=== PATIENT | female | born 1985 | race Caucasian/White ===

== ENCOUNTER 2018-10-28 17:56 | Inpatient (IN) | payer OTHER ==
[~2018-10-28] VITALS: Ht 172.7 cm; Wt 86.2 kg
[2018-10-28 20:50] VITALS: Ht 172.7 cm; Wt 86.2 kg
[2018-10-28 22:00] VITALS: BP 144/87; RESP 18
[2018-10-28] MEDS ORDERED: BUSP10TA2 PO (22:19)
[2018-10-28] MEDS ORDERED: BUPR-165 PO (22:19)
[2018-10-28] MEDS ORDERED: NACL 0.9% 3 ML SYG IV SCH (22:30)
[2018-10-28] MEDS ORDERED: HYDROCODONE/APAP (5/325) TAB PO PRN ×2 (22:30)
[2018-10-29] MEDS: DEXTROSE 5%-0.45% NACL 1,000 ML IV SCH ×4 (00:13→21:23)
[2018-10-29] MEDS: ACETAMINOPHEN 325 MG TAB PO PRN ×2 (00:44→20:14)
[2018-10-29 02:00] VITALS: BP 135/89; RESP 19
[2018-10-29] MEDS: KETOROLAC 30 MG INJ IV PRN ×4 (03:51→22:13)
--- NOTE | 2018-10-29 07:12 | HP ---
Date/Time of Note Date/Time of Note DATE: 10/29/18 TIME: 07:09 Assessment/Plan VTE Prophylaxis Pharmacological prophylaxis: heparin Lines/Catheters IV Catheter Type (from Nrsg): Peripheral IV Assessment/Plan Assessment/Plan 1. Nausea/vomiting and diarrhea: Most likely secondary to gastroenteritis -Keep n.p.o. with IV fluid -Empiric IV antibiotic -Pain management 2. History of IV drug use: Patient in a program -Will manage pain was Toradol, which is also her choice of pain med Result Diagram: 10/29/18 0456 10/29/18 0456 Results 24hrs Laboratory Tests Test 10/29/18 04:56 White Blood Count 10.7 Red Blood Count 4.94 Hemoglobin 14.2 Hematocrit 42.8 Mean Corpuscular Volume 86.6 Mean Corpuscular Hemoglobin 28.7 L Mean Corpuscular Hemoglobin Concent 33.2 Red Cell Distribution Width 15.0 H Platelet Count 321 Mean Platelet Volume 9.9 Immature Granulocytes % 0.700 H Neutrophils % 66.0 Lymphocytes % 22.7 Monocytes % 8.6 Eosinophils % 1.6 Basophils % 0.4 Nucleated Red Blood Cells % 0.0 Immature Granulocytes # 0.070 H Neutrophils # 7.0 Lymphocytes # 2.4 Monocytes # 0.9 Eosinophils # 0.2 Basophils # 0.0 Nucleated Red Blood Cells # 0.0 Sodium Level 139 Potassium Level 3.7 Chloride Level 105 Carbon Dioxide Level 24 Anion Gap 10 Blood Urea Nitrogen 5 L Creatinine 0.57 Est Glomerular Filtrat Rate mL/min > 60 Glucose Level 106 Calcium Level 9.4 Phosphorus Level 3.4 Magnesium Level 2.0 Total Bilirubin 0.5 Direct Bilirubin 0.00 Indirect Bilirubin 0.5 Aspartate Amino Transf (AST/SGOT) 22 Alanine Aminotransferase (ALT/SGPT) 16 Alkaline Phosphatase 47 Total Protein 7.2 Albumin 4.3 Globulin 2.90 Albumin/Globulin Ratio 1.48 HPI/ROS Admit Date/Time Admit Date/Time October 28, 2018 at 20:38 Hx of Present Illness Patient is a 33-year-old female with a history of IV drug use who initially presented to [facility] complaining of nausea/vomiting or diarrhea. Symptom has been going on for about 2 days. Emesis described as reddish and the diarrhea watery and brown. She did eat reddish spice and she is not sure if emesis was in fact blood. Last vomiting and diarrhea was at 2pm. She had a CT abdomen/pelvis at the outside hospital which was negative for acute findings. She was discharged home earlier, but came back to the same hospital because of persistent symptoms. Patient then transferred to [facility] for insurance reason PMH/Family/Social Past Medical History Medications Current Medications Dextrose/Sodium Chloride 1,000 ml @ 100 mls/hr Q10H IV Last administered on 10/29/18at 00:13; Admin Dose 100 MLS/HR; Start 10/28/18 at 22:18; Stop 10/31/18 at 22:17 IV Flush (NS 3 ml) 3 ml PER PROTOCOL IV ; Start 10/28/18 at 22:30 Ondansetron HCl (Zofran Inj) 4 mg Q6H PRN IV NAUSEA/VOMITING; Start 10/28/18 at 22:30 Acetaminophen (Tylenol Tab) 650 mg Q6H PRN PO .PAIN 1-3 OR TEMP Last administered on 10/29/18at 00:44; Admin Dose 650 MG; Start 10/28/18 at 22:30 Ketorolac Tromethamine (Toradol) 30 mg Q6H PRN IV PAIN LEVEL 6-10 Last administered on 10/29/18at 03:51; Admin Dose 30 MG; Start 10/29/18 at 01:30; Stop 11/01/18 at 01:29 Coded Allergies: No Known Allergies (Verified Allergy, Unknown, 10/28/18) Exam/Review of Systems Vital Signs Vitals Vital Signs Date Temp Pulse Resp B/P (MAP) Pulse Ox O2 O2 Flow FiO2 Time Delivery Rate 10/29/18 98.6 19 135/89 96 02:00 (104) Intake and Output 10/28/18 10/28/18 10/29/18 1515:00 23:00 07:00 IntakeIntake Total 790 ml BalanceBalance 790 ml Exam Exam Past Surgical Hx: other (HPI) Family History Significant Family History: no pertinent family hx Social History Alcohol Use: none Smoking Status: Never smoker Drug Use: none Exam Constitutional: alert, oriented, well developed Head: normocephalic, atraumatic Eyes: EOMI, PERRL Respiratory: clear to auscultation, normal air movement Cardiovascular: regular rate and rhythm, nl pulses Gastrointestinal: soft, other (Right lower quadrant tenderness elicited on palpation. Patient also with right flank pain) Extremities: normal pulses ARMEN ROLDAN MD October 29, 2018 07:12
[2018-10-29 07:48] VITALS: BP 126/76; PULSE 60; RESP 20
[2018-10-29] MEDS: ONDANSETRON 4 MG INJ IV PRN ×2 (09:32→17:17)
[2018-10-29] MEDS: NICOTINE (14 MG/24 HR) PATCH TRANSDERM SCH (11:51)
[2018-10-29 13:34] VITALS: BP 128/98; PULSE 72; RESP 20
--- NOTE | 2018-10-29 15:40 | PN ---
Date/Time of Note Date/Time of Note DATE: 10/29/18 TIME: 15:35 Assessment/Plan VTE Prophylaxis Risk score (from Ns)>0 risk: 1 SCD applied (from Ns): Yes Pharmacological prophylaxis: other Pharm contraindication: low risk/ambulating Lines/Catheters [facility]from [facility] Peripheral IV Urinary Cath still in place: No Assessment/Plan Assessment/Plan 1. Acute gastroenteritis, improving, IVF, clear liquid 2. H/o IVDA Result Diagram: 10/29/18 0456 10/29/18 0456 Results 24hrs Laboratory Tests Test 10/29/18 04:56 White Blood Count 10.7 Red Blood Count 4.94 Hemoglobin 14.2 Hematocrit 42.8 Mean Corpuscular Volume 86.6 Mean Corpuscular Hemoglobin 28.7 L Mean Corpuscular Hemoglobin Concent 33.2 Red Cell Distribution Width 15.0 H Platelet Count 321 Mean Platelet Volume 9.9 Immature Granulocytes % 0.700 H Neutrophils % 66.0 Lymphocytes % 22.7 Monocytes % 8.6 Eosinophils % 1.6 Basophils % 0.4 Nucleated Red Blood Cells % 0.0 Immature Granulocytes # 0.070 H Neutrophils # 7.0 Lymphocytes # 2.4 Monocytes # 0.9 Eosinophils # 0.2 Basophils # 0.0 Nucleated Red Blood Cells # 0.0 Sodium Level 139 Potassium Level 3.7 Chloride Level 105 Carbon Dioxide Level 24 Anion Gap 10 Blood Urea Nitrogen 5 L Creatinine 0.57 Est Glomerular Filtrat Rate mL/min > 60 Glucose Level 106 Calcium Level 9.4 Phosphorus Level 3.4 Magnesium Level 2.0 Total Bilirubin 0.5 Direct Bilirubin 0.00 Indirect Bilirubin 0.5 Aspartate Amino Transf (AST/SGOT) 22 Alanine Aminotransferase (ALT/SGPT) 16 Alkaline Phosphatase 47 Total Protein 7.2 Albumin 4.3 Globulin 2.90 Albumin/Globulin Ratio 1.48 Subjective 24 Hr Interval Summary Free Text/Dictation still but less abdominal pain, nausea and vomiting, less diarrhea Exam/Review of Systems Exam Vitals Vital Signs Date Temp Pulse Resp B/P (MAP) Pulse Ox O2 O2 Flow FiO2 Time Delivery Rate 10/29/18 97.7 72 20 128/98 98 13:34 (108) Intake and Output 10/28/18 10/28/18 10/29/18 1515:00 23:00 07:00 IntakeIntake Total 790 ml BalanceBalance 790 ml Constitutional: alert, oriented, well developed Psych: no complaints, nl mood/affect Head: normocephalic, atraumatic Eyes: nl conjunctiva, EOMI, nl lids ENMT: nl external ears & nose, nl lips & teeth, nl nasal mucosa & septum Neck: supple, non-tender Respiratory: clear to auscultation, normal air movement; No congested cough, No crackles/rales, No diminished breath sounds, No intercostal retraction, No labored breathing, No respirations, No tactile fremitus, No wheezing, No other Cardiovascular: regular rate and rhythm, nl pulses; No bruits, No diastolic murmur, No edema, No gallop, No irregular rhythm, No jugular venous distention (JVD), No murmurs/extra sounds, No rub, No systolic murmur, No S3, No S4, No other Gastrointestinal: soft, nl liver, spleen, other (diffuse tenderness) Musculoskeletal: nl extremities to inspection Extremities: normal pulses Neurological: CIRCUS AGENT II-XII intact, nl mental status, nl speech, nl strength Results Results 24hrs Laboratory Tests Test 10/29/18 04:56 White Blood Count 10.7 Red Blood Count 4.94 Hemoglobin 14.2 Hematocrit 42.8 Mean Corpuscular Volume 86.6 Mean Corpuscular Hemoglobin 28.7 L Mean Corpuscular Hemoglobin Concent 33.2 Red Cell Distribution Width 15.0 H Platelet Count 321 Mean Platelet Volume 9.9 Immature Granulocytes % 0.700 H Neutrophils % 66.0 Lymphocytes % 22.7 Monocytes % 8.6 Eosinophils % 1.6 Basophils % 0.4 Nucleated Red Blood Cells % 0.0 Immature Granulocytes # 0.070 H Neutrophils # 7.0 Lymphocytes # 2.4 Monocytes # 0.9 Eosinophils # 0.2 Basophils # 0.0 Nucleated Red Blood Cells # 0.0 Sodium Level 139 Potassium Level 3.7 Chloride Level 105 Carbon Dioxide Level 24 Anion Gap 10 Blood Urea Nitrogen 5 L Creatinine 0.57 Est Glomerular Filtrat Rate mL/min > 60 Glucose Level 106 Calcium Level 9.4 Phosphorus Level 3.4 Magnesium Level 2.0 Total Bilirubin 0.5 Direct Bilirubin 0.00 Indirect Bilirubin 0.5 Aspartate Amino Transf (AST/SGOT) 22 Alanine Aminotransferase (ALT/SGPT) 16 Alkaline Phosphatase 47 Total Protein 7.2 Albumin 4.3 Globulin 2.90 Albumin/Globulin Ratio 1.48 Medications Medication Current Medications Dextrose/Sodium Chloride 1,000 ml @ 100 mls/hr Q10H IV Last administered on 10/29/18 11:53; Admin Dose 100 MLS/HR; Start 10/28/18 at 22:18; Stop 10/31/18 at 22:17 IV Flush (NS 3 ml) 3 ml PER PROTOCOL IV ; Start 10/28/18 at 22:30 Ondansetron HCl (Zofran Inj) 4 mg Q6H PRN IV NAUSEA/VOMITING Last administered on 10/29/18 09:32; Admin Dose 4 MG; Start 10/28/18 at 22:30 Acetaminophen (Tylenol Tab) 650 mg Q6H PRN PO .PAIN 1-3 OR TEMP Last administered on 10/29/18 00:44; Admin Dose 650 MG; Start 10/28/18 at 22:30 Ketorolac Tromethamine (Toradol) 30 mg Q6H PRN IV PAIN LEVEL 6-10 Last administered on 10/29/18 09:32; Admin Dose 30 MG; Start 10/29/18 at 01:30; Stop 11/01/18 at 01:29 Nicotine (Nicoderm 14 Mg/ 24hr) 1 patch DAILY TRANSDERM Last administered on 10/29/18 11:51; Admin Dose 1 PATCH; Start 10/29/18 at 11:00 PAULA THAPA MD October 29, 2018 15:40
[2018-10-29] MEDS ORDERED: PROCHLORPERAZINE 5 MG TAB PO PRN (19:30)
[2018-10-29] MEDS ORDERED: CEFTRIAXONE 1 GM INJ IVPB ONE (19:30)
[2018-10-29 20:12] VITALS: BP 150/98; PULSE 70; RESP 18
[2018-10-29] MEDS ORDERED: CEFTRIAXONE 1 GM/NS 50 ML IVPB SCH (20:30)
[2018-10-29] MEDS ORDERED: METOCLOPRAMIDE 10 MG INJ IV ONE (20:30)
[2018-10-29] MEDS: metroNIDAZOLE 500 MG/NS (PMX) 100 ML IVPB SCH (21:23)
[2018-10-30 01:18] VITALS: BP 116/72; PULSE 76; RESP 18
[2018-10-30] MEDS: KETOROLAC 30 MG INJ IV PRN ×4 (04:13→22:19)
[2018-10-30] MEDS: ONDANSETRON 4 MG INJ IV PRN ×4 (04:13→21:06)
[2018-10-30] MEDS: DEXTROSE 5%-0.45% NACL 1,000 ML IV SCH ×4 (04:18→22:24)
[2018-10-30] MEDS: metroNIDAZOLE 500 MG/NS (PMX) 100 ML IVPB SCH ×3 (05:56→22:18)
[2018-10-30 07:49] VITALS: BP 124/76; PULSE 67; RESP 17
[2018-10-30] MEDS: NICOTINE (14 MG/24 HR) PATCH TRANSDERM SCH (09:20)
[2018-10-30 16:24] VITALS: BP 117/79; PULSE 83; RESP 16
--- NOTE | 2018-10-30 17:16 | PN ---
Date/Time of Note Date/Time of Note DATE: 10/30/18 TIME: 17:14 Assessment/Plan VTE [place] [facility] [place]: 1 [place] [facility] [place] Yes Pharmacological prophylaxis: other Pharm contraindication: other Lines/Catheters IV [facility] Type (from [facility] Saline Lock Urinary Cath still in place: No Assessment/Plan Assessment/Plan 1. Acute gastroenteritis, improving, IVF, advance diet 2. H/o IVDA Result Diagram: 10/30/1844210/30/18442 Results 24hrs Laboratory Tests Test 10/29/18 19:00 10/30/18 04:43 Urine Color YELLOW Urine Clarity CLOUDY A Urine pH 8.0 Urine Specific [place] 1.013 Urine Ketones NEGATIVE Urine Nitrite NEGATIVE Urine Bilirubin NEGATIVE Urine Urobilinogen NEGATIVE Urine Leukocyte Esterase NEGATIVE Urine Microscopic RBC 2 Urine Microscopic WBC 2 Urine Squamous Epithelial Cells MANY A Urine Bacteria FEW A Urine Mucus FEW A Urine Hemoglobin NEGATIVE Urine Glucose NEGATIVE Urine Total Protein NEGATIVE Urine Test NEGATIVE White Blood Count 9.3 Red Blood Count 4.99 Hemoglobin 14.4 Hematocrit 43.7 Mean Corpuscular Volume 87.6 Mean Corpuscular Hemoglobin 28.9 L Mean Corpuscular Hemoglobin Concent 33.0 Red Cell Distribution Width 14.8 H Platelet Count 283 Mean Platelet Volume 9.8 Immature Granulocytes % 0.500 H Neutrophils % 66.7 Lymphocytes % 21.8 Monocytes % 8.4 Eosinophils % 2.0 Basophils % 0.6 Nucleated Red Blood Cells % 0.0 Immature Granulocytes # 0.050 H Neutrophils # 6.2 Lymphocytes # 2.0 Monocytes # 0.8 Eosinophils # 0.2 Basophils # 0.1 Nucleated Red Blood Cells # 0.0 Sodium Level 138 Potassium Level 3.5 Chloride Level 105 Carbon Dioxide Level 24 Anion Gap 9 Blood Urea Nitrogen 7 Creatinine 0.69 Est Glomerular Filtrat Rate mL/min > 60 Glucose Level 139 Calcium Level 9.0 Magnesium Level 2.0 Subjective 24 Hr Interval Summary Free Text/Dictation still nausea but no vomiting, no diarrhea today Exam/Review of Systems Exam Vitals Vital Signs Date Temp Pulse Resp B/P (MAP) Pulse Ox O2 O2 Flow FiO2 Time Delivery Rate 10/30/18 98.2 83 16 117/79 96 Room Air 16:24 (92) Intake and Output 10/29/18 10/29/18 10/30/18 1515:00 23:00 07:00 IntakeIntake Total 1650 ml 1390 ml 800 ml BalanceBalance 1650 ml 1390 ml 800 ml Constitutional: alert, oriented, well developed Psych: no complaints, nl mood/affect Head: normocephalic, atraumatic Eyes: nl conjunctiva, EOMI, nl lids, PERRL ENMT: nl external ears & nose, nl lips & teeth, nl nasal mucosa & septum Neck: supple, non-tender Respiratory: clear to auscultation, normal air movement; No congested cough, No crackles/rales, No diminished breath sounds, No intercostal retraction, No labored breathing, No respirations, No tactile fremitus, No wheezing, No other Cardiovascular: regular rate and rhythm, nl pulses; No bruits, No diastolic murmur, No edema, No gallop, No irregular rhythm, No jugular venous distention (JVD), No murmurs/extra sounds, No rub, No systolic murmur, No S3, No S4, No other Gastrointestinal: soft, nl liver, spleen, tender (diffuse mild tenderness); No ascites, No bowel sounds, No distended, No firm, No hepatomegaly, No mass, No rebound or guarding, No splenomegaly, No surgical scars, No other Musculoskeletal: nl extremities to inspection Extremities: normal pulses; No calf tenderness, No cyanosis, No clubbing, No edema, No pitting pedal edema, No palpable cord, No tenderness, No other Neurological: WORK STATION SUPPORT SPECIALIST II-XII intact, nl mental status, nl speech Results Results 24hrs Laboratory Tests Test 10/29/18 19:00 10/30/18 04:43 Urine Color YELLOW Urine Clarity CLOUDY A Urine pH 8.0 Urine Specific [place] 1.013 Urine Ketones NEGATIVE Urine Nitrite NEGATIVE Urine Bilirubin NEGATIVE Urine Urobilinogen NEGATIVE Urine Leukocyte Esterase NEGATIVE Urine Microscopic RBC 2 Urine Microscopic WBC 2 Urine Squamous Epithelial Cells MANY A Urine Bacteria FEW A Urine Mucus FEW A Urine Hemoglobin NEGATIVE Urine Glucose NEGATIVE Urine Total Protein NEGATIVE Urine Test NEGATIVE White Blood Count 9.3 Red Blood Count 4.99 Hemoglobin 14.4 Hematocrit 43.7 Mean Corpuscular Volume 87.6 Mean Corpuscular Hemoglobin 28.9 L Mean Corpuscular Hemoglobin Concent 33.0 Red Cell Distribution Width 14.8 H Platelet Count 283 Mean Platelet Volume 9.8 Immature Granulocytes % 0.500 H Neutrophils % 66.7 Lymphocytes % 21.8 Monocytes % 8.4 Eosinophils % 2.0 Basophils % 0.6 Nucleated Red Blood Cells % 0.0 Immature Granulocytes # 0.050 H Neutrophils # 6.2 Lymphocytes # 2.0 Monocytes # 0.8 Eosinophils # 0.2 Basophils # 0.1 Nucleated Red Blood Cells # 0.0 Sodium Level 138 Potassium Level 3.5 Chloride Level 105 Carbon Dioxide Level 24 Anion Gap 9 Blood Urea Nitrogen 7 Creatinine 0.69 Est Glomerular Filtrat Rate mL/min > 60 Glucose Level 139 Calcium Level 9.0 Magnesium Level 2.0 Medications Medication Current Medications Dextrose/Sodium Chloride 1,000 ml @ 100 mls/hr Q10H IV Last administered on 10/30/18 10:07; Admin Dose 100 MLS/HR; Start 10/28/18 at 22:18; Stop 10/31/18 at 22:17 IV Flush (NS 3 ml) 3 ml PER PROTOCOL IV ; Start 10/28/18 at 22:30 Acetaminophen (Tylenol Tab) 650 mg Q6H PRN PO .PAIN 1-3 OR TEMP Last administered on 10/29/18 20:14; Admin Dose 650 MG; Start 10/28/18 at 22:30 Ketorolac Tromethamine (Toradol) 30 mg Q6H PRN IV PAIN LEVEL 6-10 Last administered on 10/30/18 16:33; Admin Dose 30 MG; Start 10/29/18 at 01:30; Stop 11/01/18 at 01:29 Nicotine (Nicoderm 14 Mg/ 24hr) 1 patch DAILY TRANSDERM Last administered on 10/30/18 09:20; Admin Dose 1 PATCH; Start 10/29/18 at 11:00 Metronidazole 100 ml @ 100 mls/hr Q8 IVPB Last administered on 10/30/18 14:32; Admin Dose 100 MLS/HR; Start 10/29/18 at 21:00 Prochlorperazine (Compazine) 5 mg Q6H PRN PO NAUSEA AND/OR VOMITING; Start 10/29/18 at 19:30 Ondansetron HCl (Zofran Inj) 4 mg Q4H PRN IV NAUSEA/VOMITING Last administered on 10/30/18 16:33; Admin Dose 4 MG; Start 10/29/18 at 22:30 PAULA THAPA MD October 30, 2018 17:16
[2018-10-30] MEDS: ACETAMINOPHEN 325 MG TAB PO PRN (19:50)
[2018-10-30 20:00] VITALS: BP 120/81; PULSE 91; RESP 17
[2018-10-31] MEDS: DEXTROSE 5%-0.45% NACL 1,000 ML IV SCH ×3 (00:18→20:18)
[2018-10-31 02:19] VITALS: BP 120/76; PULSE 79; RESP 16
[2018-10-31] MEDS: KETOROLAC 30 MG INJ IV PRN ×4 (04:13→23:23)
[2018-10-31] MEDS: ONDANSETRON 4 MG INJ IV PRN ×3 (04:13→21:15)
[2018-10-31] MEDS: metroNIDAZOLE 500 MG/NS (PMX) 100 ML IVPB SCH ×3 (05:24→21:16)
[2018-10-31 07:45] VITALS: BP 113/72; PULSE 70; RESP 18
[2018-10-31] MEDS: NICOTINE (14 MG/24 HR) PATCH TRANSDERM SCH (08:58)
[2018-10-31] MEDS: ACETAMINOPHEN 325 MG TAB PO PRN ×2 (15:52→21:54)
--- NOTE | 2018-10-31 16:14 | PN ---
Date/Time of Note Date/Time of Note DATE: 10/31/18 TIME: 16:12 Assessment/Plan VTE Prophylaxis Risk score (from Ns)>0 risk: 0 SCD applied (from Ns): Yes Pharmacological prophylaxis: other Pharm contraindication: low risk/ambulating Lines/Catheters IV Catheter Type (from Nrsg): Peripheral IV Urinary Cath still in place: No Assessment/Plan Assessment/Plan 1. Acute gastroenteritis, likely bacterial, on flagyl, add levaquin 2. H/o IVDA Result Diagram: 10/31/18 0455 10/31/18 0455 Results 24hrs Laboratory Tests Test 10/31/18 04:55 White Blood Count 7.2 # Red Blood Count 4.64 Hemoglobin 13.6 Hematocrit 40.5 Mean Corpuscular Volume 87.3 Mean Corpuscular Hemoglobin 29.3 Mean Corpuscular Hemoglobin Concent 33.6 Red Cell Distribution Width 14.6 H Platelet Count 248 Mean Platelet Volume 9.8 Immature Granulocytes % 0.600 H Neutrophils % 54.1 Lymphocytes % 30.6 Monocytes % 10.4 Eosinophils % 3.6 Basophils % 0.7 Nucleated Red Blood Cells % 0.0 Immature Granulocytes # 0.040 H Neutrophils # 3.9 Lymphocytes # 2.2 Monocytes # 0.8 Eosinophils # 0.3 Basophils # 0.1 Nucleated Red Blood Cells # 0.0 Sodium Level 140 Potassium Level 3.7 Chloride Level 107 Carbon Dioxide Level 26 Anion Gap 7 Blood Urea Nitrogen 8 Creatinine 0.66 Est Glomerular Filtrat Rate mL/min > 60 Glucose Level 96 # Calcium Level 8.8 Magnesium Level 1.9 Subjective 24 Hr Interval Summary Free Text/Dictation abdominal pain restarted with nausea Exam/Review of Systems Exam Vitals Vital Signs Date Temp Pulse Resp B/P (MAP) Pulse Ox O2 O2 Flow FiO2 Time Delivery Rate 10/31/18 97.8 70 18 113/72 97 07:45 (86) 10/30/18 Room Air 16:24 Intake and Output 10/30/18 10/30/18 10/31/18 1515:00 23:00 07:00 IntakeIntake Total 1040 ml 2300 ml 730 ml BalanceBalance 1040 ml 2300 ml 730 ml Constitutional: alert, oriented, well developed Psych: no complaints, nl mood/affect Head: normocephalic, atraumatic Eyes: nl conjunctiva, EOMI, nl lids ENMT: nl external ears & nose, nl lips & teeth, nl nasal mucosa & septum Neck: supple, non-tender Respiratory: clear to auscultation, normal air movement; No congested cough, No crackles/rales, No diminished breath sounds, No intercostal retraction, No labored breathing, No respirations, No tactile fremitus, No wheezing, No other Cardiovascular: regular rate and rhythm, nl pulses; No bruits, No diastolic murmur, No edema, No gallop, No irregular rhythm, No jugular venous distention (JVD), No murmurs/extra sounds, No rub, No systolic murmur, No S3, No S4, No other Gastrointestinal: soft, tender (diffuse ) Musculoskeletal: nl extremities to inspection Extremities: normal pulses; No calf tenderness, No cyanosis, No clubbing, No edema, No pitting pedal edema, No palpable cord, No tenderness, No other Neurological: WARRANTY CLERK II-XII intact, nl mental status, nl speech, nl strength Results Results 24hrs Laboratory Tests Test 10/31/18 04:55 White Blood Count 7.2 # Red Blood Count 4.64 Hemoglobin 13.6 Hematocrit 40.5 Mean Corpuscular Volume 87.3 Mean Corpuscular Hemoglobin 29.3 Mean Corpuscular Hemoglobin Concent 33.6 Red Cell Distribution Width 14.6 H Platelet Count 248 Mean Platelet Volume 9.8 Immature Granulocytes % 0.600 H Neutrophils % 54.1 Lymphocytes % 30.6 Monocytes % 10.4 Eosinophils % 3.6 Basophils % 0.7 Nucleated Red Blood Cells % 0.0 Immature Granulocytes # 0.040 H Neutrophils # 3.9 Lymphocytes # 2.2 Monocytes # 0.8 Eosinophils # 0.3 Basophils # 0.1 Nucleated Red Blood Cells # 0.0 Sodium Level 140 Potassium Level 3.7 Chloride Level 107 Carbon Dioxide Level 26 Anion Gap 7 Blood Urea Nitrogen 8 Creatinine 0.66 Est Glomerular Filtrat Rate mL/min > 60 Glucose Level 96 # Calcium Level 8.8 Magnesium Level 1.9 Medications Medication Current Medications Dextrose/Sodium Chloride 1,000 ml @ 100 mls/hr Q10H IV Last administered on 10/31/18at 11:59; Admin Dose 100 MLS/HR; Start 10/28/18 at 22:18; Stop 10/31/18 at 22:17 IV Flush (NS 3 ml) 3 ml PER PROTOCOL IV ; Start 10/28/18 at 22:30 Acetaminophen (Tylenol Tab) 650 mg Q6H PRN PO .PAIN 1-3 OR TEMP Last administered on 10/31/18 15:52; Admin Dose 650 MG; Start 10/28/18 at 22:30 Ketorolac Tromethamine (Toradol) 30 mg Q6H PRN IV PAIN LEVEL 6-10 Last administered on 10/31/18 10:43; Admin Dose 30 MG; Start 10/29/18 at 01:30; Stop 11/01/18 at 01:29 Nicotine (Nicoderm 14 Mg/ 24hr) 1 patch DAILY TRANSDERM Last administered on 10/31/18 08:58; Admin Dose 1 PATCH; Start 10/29/18 at 11:00 Metronidazole 100 ml @ 100 mls/hr Q8 IVPB Last administered on 10/31/18 14:40; Admin Dose 100 MLS/HR; Start 10/29/18 at 21:00 Prochlorperazine (Compazine) 5 mg Q6H PRN PO NAUSEA AND/OR VOMITING; Start 10/29/18 at 19:30 Ondansetron HCl (Zofran Inj) 4 mg Q4H PRN IV NAUSEA/VOMITING Last administered on 10/31/18 04:13; Admin Dose 4 MG; Start 10/29/18 at 22:30 PAULA THAPA MD October 31, 2018 16:14
[2018-10-31] MEDS: LEVOFLOXACIN 500MG/D5W (PMX) 100 ML IVPB SCH (16:45)
[2018-10-31 19:31] VITALS: BP 129/81; PULSE 97; RESP 18
[2018-11-01 01:43] VITALS: BP 119/74; PULSE 79; RESP 18
[2018-11-01] MEDS: metroNIDAZOLE 500 MG/NS (PMX) 100 ML IVPB SCH ×2 (05:44→13:36)
[2018-11-01] MEDS: KETOROLAC 30 MG INJ IV PRN ×4 (05:44→23:56)
[2018-11-01 07:33] VITALS: BP 122/71; PULSE 77; RESP 16
[2018-11-01] MEDS: NICOTINE (14 MG/24 HR) PATCH TRANSDERM SCH (08:40)
[2018-11-01] MEDS: ONDANSETRON 4 MG INJ IV PRN ×2 (11:40→22:47)
[2018-11-01 14:32] VITALS: BP 127/81; PULSE 91; RESP 18
--- NOTE | 2018-11-01 16:19 | PN ---
Date/Time of Note Date/Time of Note DATE: 11/01/18 TIME: 16:17 Assessment/Plan VTE Prophylaxis Risk score (from Ns)>0 risk: 0 [place] [facility] [place] Yes Pharmacological prophylaxis: other Pharm contraindication: other Lines/Catheters IV Catheter Type (from [facility] Peripheral IV Urinary Cath still in place: No Assessment/Plan Assessment/Plan 1. Acute gastroenteritis, improving but still has watery diarrhea, send stool for WBC, continue levaquin 2. H/o IVDA Result Diagram: 10/31/18 0455 11/01/18 0533 Results 24hrs Laboratory Tests Test 11/01/18 05:33 Sodium Level 140 Potassium Level 4.3 Chloride Level 105 Carbon Dioxide Level 27 Anion Gap 8 Blood Urea Nitrogen 9 Creatinine 0.71 Est Glomerular Filtrat Rate mL/min > 60 Glucose Level 95 Calcium Level 9.1 Subjective 24 Hr Interval Summary Free Text/Dictation no nausea or vomiting but still has watery diarrhea. no fever or chills Exam/Review of Systems Exam Vitals Vital Signs Date Temp Pulse Resp B/P (MAP) Pulse Ox O2 O2 Flow FiO2 Time Delivery Rate 11/01/18 98.5 91 18 127/81 96 Room Air 14:32 (96) Intake and Output 10/31/18 10/31/18 11/01/18 1515:00 23:00 07:00 IntakeIntake Total 1670 ml 1125 ml 1200 ml BalanceBalance 1670 ml 1125 ml 1200 ml Constitutional: alert, oriented, well developed Psych: no complaints, nl mood/affect Head: normocephalic, atraumatic Eyes: nl conjunctiva, EOMI, nl lids, PERRL ENMT: nl external ears & nose, nl lips & teeth, nl nasal mucosa & septum Neck: supple, non-tender Respiratory: clear to auscultation, normal air movement; No congested cough, No crackles/rales, No diminished breath sounds, No intercostal retraction, No labored breathing, No respirations, No tactile fremitus, No wheezing, No other Cardiovascular: regular rate and rhythm, nl pulses; No bruits, No diastolic murmur, No edema, No gallop, No irregular rhythm, No jugular venous distention (JVD), No murmurs/extra sounds, No rub, No systolic murmur, No S3, No S4, No other Gastrointestinal: soft, nl liver, spleen, other (diffuse) Musculoskeletal: nl extremities to inspection Extremities: normal pulses; No calf tenderness, No cyanosis, No clubbing, No edema, No pitting pedal edema, No palpable cord, No tenderness, No other Neurological: MARBLE POLISHER II-XII intact, nl mental status, nl speech, nl strength Results Results 24hrs Laboratory Tests Test 11/01/18 05:33 Sodium Level 140 Potassium Level 4.3 Chloride Level 105 Carbon Dioxide Level 27 Anion Gap 8 Blood Urea Nitrogen 9 Creatinine 0.71 Est Glomerular Filtrat Rate mL/min > 60 Glucose Level 95 Calcium Level 9.1 Medications Medication Current Medications IV Flush (NS 3 ml) 3 ml PER PROTOCOL IV ; Start 10/28/18 at 22:30 Acetaminophen (Tylenol Tab) 650 mg Q6H PRN PO .PAIN 1-3 OR TEMP Last administered on 10/31/18 21:54; Admin Dose 650 MG; Start 10/28/18 at 22:30 Nicotine (Nicoderm 14 Mg/ 24hr) 1 patch DAILY TRANSDERM Last administered on 11/01/18at 08:40; Admin Dose 1 PATCH; Start 10/29/18 at 11:00 Metronidazole 100 ml @ 100 mls/hr Q8 IVPB Last administered on 11/01/18 13:36; Admin Dose 100 MLS/HR; Start 10/29/18 at 21:00 Prochlorperazine (Compazine) 5 mg Q6H PRN PO NAUSEA AND/OR VOMITING; Start 10/29/18 at 19:30 Ondansetron HCl (Zofran Inj) 4 mg Q4H PRN IV NAUSEA/VOMITING Last administered on 11/01/18 11:40; Admin Dose 4 MG; Start 10/29/18 at 22:30 Levofloxacin/ Dextrose 100 ml @ 100 mls/hr Q24H IVPB Last administered on 10/31/18 16:45; Admin Dose 100 MLS/HR; Start 10/31/18 at 16:30 Ketorolac Tromethamine (Toradol) 30 mg Q6H PRN IV PAIN LEVEL 1-3 Last administered on 11/01/18 11:36; Admin Dose 30 MG; Start 11/01/18 at 02:00; Stop 11/04/18 at 01:59 PAULA THAPA MD November 01, 2018 16:19
[2018-11-01] MEDS: LEVOFLOXACIN 500MG/D5W (PMX) 100 ML IVPB SCH (17:19)
[2018-11-01 20:30] VITALS: BP 132/95; PULSE 102; RESP 16
[2018-11-01] MEDS: ACETAMINOPHEN 325 MG TAB PO PRN (22:47)
[2018-11-02 01:30] VITALS: BP 121/98; PULSE 88; RESP 18
[2018-11-02 07:28] VITALS: BP 126/68; PULSE 81; RESP 18
[2018-11-02] MEDS: NICOTINE (14 MG/24 HR) PATCH TRANSDERM SCH (09:33)
[2018-11-02] MEDS: KETOROLAC 30 MG INJ IV PRN (09:38)
[2018-11-02] MEDS: ONDANSETRON 4 MG INJ IV PRN (09:38)
[2018-11-02] MEDS ORDERED: LEVO500T48 PO (12:57)
[2018-11-02] MEDS ORDERED: ONDA4TAB8 PO (12:57)
[2018-11-02] MEDS ORDERED: Nicotine (14 Mg/24 Hr) TRANSDERM (12:57)
--- NOTE | 2018-11-02 12:59 | DS ---
Date/Time of Note Date/Time of Note DATE: 11/02/18 TIME: 12:57 Discharge Summary Admission/Discharge Info Admit Date/Time October 28, 2018 at 20:38 Discharge Date/Time Discharge Diagnosis 1. Acute gastroenteritis, improving 2. H/o IVDA -counseled on cessation 3. Smoking history: On nicotine patch, counseled on cessation 4. Anxiety/possible bipolar disorder Patient Condition: Stable Hx of Present Illness 33-year-old female with a history of IV drug use who initially presented to [facility] complaining of nausea/vomiting or diarrhea. Symptom has been going on for about 2 days. Emesis described as reddish and the diarrhea watery and brown. She did eat reddish spice and she is not sure if emesis was in fact blood. Last vomiting and diarrhea was at 2pm. She had a CT abdomen/pelvis at the outside hospital which was negative for acute findings. She was discharged home earlier, but came back to the same hospital because of persistent symptoms. Patient then transferred to [facility] for insurance reason Hospital Course Patient was admitted and given IV fluids, antiemetics, and low-dose p.o. antibiotics. Stool studies were ordered but patient's diarrhea symptoms improved and stool studies were never able to be collected. Her labs remained stable. She was able to ambulate, tolerated p.o. diet. She still had some mild nausea symptoms but a day of discharge but this was improved with Zofran cerumen right [facility] prescription for that. Overall her symptoms are likely secondary to gastroenteritis which is overall slowly improving, patient will be discharged home today in improved condition. See below for full list of discharge medications. Home Meds Active Scripts Levofloxacin* (Levaquin*) 500 Mg Tablet, 500 MG PO DAILY for 5 Days, TAB Prov:LLUVIA CAAL S. 11/02/18 Ondansetron Hcl* (Zofran*) 4 Mg Tablet, 4 MG PO Q6H PRN for NAUSEA AND OR VOMITING, #10 TAB Prov:LLUVIA CAAL S. 11/02/18 [Nicotine (14 Mg/24 Hr)] 1 PATCH PATCH No Conflict Check, 1 PATCH TRANSDERM DAILY, #30 ADH.PATCH 1 Refill Prov:LLUVIA CAAL S. 11/02/18 Reported Medications Buspirone Hcl* (Buspirone Hcl*) 10 Mg Tab, 15 MG PO BID, TAB 10/28/18 Bupropion Hcl* (Wellbutrin SR*) 150 Mg Tablet.sa, 30 MG PO DAILY, TAB.SA 10/28/18 Primary Care Provider Not On Staff Doctor Time spent on discharge: > 30 minutes Pending Labs Laboratory Tests Test 11/02/18 05:53 White Blood Count 10.0 10^3/ul (4.8-10.8) Red Blood Count 4.64 10^6/ul (4.20-5.40) Hemoglobin 13.4 g/dl (12.0-16.0) Hematocrit 40.5 % (37.0-47.0) Mean Corpuscular Volume 87.3 fl (82.0-101.0) Mean Corpuscular Hemoglobin 28.9 pg (29.0-33.0) Mean Corpuscular Hemoglobin Concent 33.1 g/dl (32.0-37.0) Red Cell Distribution Width 14.4 % (11.5-14.5) Platelet Count 275 10^3/UL (140-415) Mean Platelet Volume 9.7 fl (7.4-10.4) Immature Granulocytes % 0.400 % (0.001-0.429) Neutrophils % 67.3 % (39.0-77.0) Lymphocytes % 21.5 % (15.0-51.0) Monocytes % 8.6 % (0.0-11.0) Eosinophils % 1.8 % (0.0-7.0) Basophils % 0.4 % (0.0-2.0) Nucleated Red Blood Cells % 0.0 /100WBC (0.0-0.0) Immature Granulocytes # 0.040 10^3/ul (0.0-0.031) Neutrophils # 6.7 10^3/ul (1.6-7.5) Lymphocytes # 2.2 10^3/ul (0.8-2.9) Monocytes # 0.9 10^3/ul (0.3-0.9) Eosinophils # 0.2 10^3/ul (0.0-0.5) Basophils # 0.0 10^3/ul (0.0-0.1) Nucleated Red Blood Cells # 0.0 10^3/ul (0.0-0.0) Sodium Level 142 mmol/L (135-144) Potassium Level 4.3 mmol/L (3.5-5.1) Chloride Level 102 mmol/L (97-110) Carbon Dioxide Level 30 mmol/L (21-31) Anion Gap 10 (5-13) Blood Urea Nitrogen 12 mg/dl (7-20) Creatinine 0.73 mg/dl (0.44-1.00) Est Glomerular Filtrat Rate mL/min > 60 mL/min (>60) Glucose Level 92 mg/dl (70-220) Calcium Level 10.3 mg/dl (8.4-10.2) LLUVIA CAAL. November 02, 2018 12:59
== END 2018-11-02 14:52 | disposition home or self-care (01) | DRG 392 ==
LOC: 2NE 20:38
PROVIDERS: ADMIT Hospitalist; ATTEND Hospitalist
DX: K52.9 Noninfective gastroenteritis and colitis, unspecified (principal); F17.200 Nicotine dependence, unspecified, uncomplicated; F41.9 Anxiety disorder, unspecified; F31.9 Bipolar disorder, unspecified
CPT/HCPCS: 80048; 80053; 81001; 83735; 84100; 84703; 85025; J0696; J1885; J1956; J2405; J2765; J7042